=== PATIENT | female | born 1960 | race Caucasian/White ===

== ENCOUNTER 2022-12-12 07:15 | Day surgery (SDC) | payer OTHER ==
[~2022-12-12] VITALS: Ht 162.6 cm; Wt 76.3 kg
[~2022-12-12 07:15] MED LIST: CYCL10 PO; FLUT.05NI; HYDACE5 PO; MECL25 PO; NAPR220 PO; ROSU10TA PO; ROSU5 PO; RXCYCL10 PO; RXHYDACE PO
== END 2022-12-12 09:28 | disposition home or self-care (01) ==
LOC: ORSCSDS 07:15
PROVIDERS: Surgery
PROC: 0DBN8ZX Excision of Sigmoid Colon, Via Natural or Artificial Opening Endoscopic, Diagnostic (ICD-10-PCS; principal; 2022-12-12 08:30)
DX: Z12.11 Encounter for screening for malignant neoplasm of colon (principal); D12.5 Benign neoplasm of sigmoid colon; E78.5 Hyperlipidemia, unspecified; N18.31 Chronic kidney disease, stage 3a; Z52.4 Kidney donor; Z79.899 Other long term (current) drug therapy
CPT/HCPCS: 88305; J2704; J7120

== ENCOUNTER → 2023-10-17 | Outpatient (CLI) | payer OTHER | END | disposition home or self-care (01) | LOC: LAB SHORT 18:43 → LAB 18:43 | DX: R00.2 Palpitations (principal) | CPT/HCPCS: 84484 ==